=== PATIENT | female | born 1935 | race Caucasian/White ===

== ENCOUNTER 2016-09-17 09:45 | Outpatient (CLI) | payer MEDICARE, OTHER | END 2016-09-17 09:46 | disposition home or self-care (01) | DX: M06.9 Rheumatoid arthritis, unspecified (principal); R73.01 Impaired fasting glucose; E78.5 Hyperlipidemia, unspecified; I10 Essential (primary) hypertension; D64.9 Anemia, unspecified ==

== ENCOUNTER 2016-10-04 09:10 | Outpatient (CLI) | payer MEDICARE, OTHER | END 2016-10-04 09:11 | disposition home or self-care (01) | DX: R19.7 Diarrhea, unspecified (principal) ==

== ENCOUNTER 2017-05-07 10:32 | Outpatient (CLI) | payer MEDICARE, OTHER ==
--- NOTE | 2017-05-08 14:30 | Mammography Report ---
DIGITAL SCREENING MAMMOGRAM: 05/07/2017 CLINICAL INDICATION: An 82-year-old with family history of breast cancer, for screening. COMPARISON: 02/2016, 02/2015, 11/2013, 06/2012, 06/2011, 07/2010. TECHNIQUE: Routine CC and MLO projections were obtained of the breasts. FINDINGS: The breasts again demonstrate scattered fibroglandular densities bilaterally. Coarse and p unctate, typically benign calcifications are present. Intramammary lymph nodes are stable. No suspici ous masses, clustered microcalcifications, or regions of architectural distortion are identified. IMPRESSION: BENIGN FINDINGS. RECOMMENDATION: ROUTINE ANNUAL SCREENING UNLESS OTHERWISE CLINICALLY INDICATED. BIRADS CATEGORY 2-BENIGN FINDINGS. STANDARD QUALIFYING STATEMENTS 1. This examination was reviewed with the aid of Computer-Aided Detection (CAD). 2. A negative or benign imaging report should not delay biopsy if clinically suspicious findings are present. Consider surgical consultation if warranted. More than 5% of cancers are not identified by i maging. 3. Dense breasts may obscure an underlying neoplasm. JOB #: [id number] EXT JOB #:[id number]
== END 2017-05-07 10:33 | disposition home or self-care (01) ==
LOC: DI.S 10:32
PROVIDERS: ATTEND Physician Assistant Medical
DX: Z12.31 Encounter for screening mammogram for malignant neoplasm of breast (principal); Z80.3 Family history of malignant neoplasm of breast
CPT/HCPCS: 77067

== ENCOUNTER 2017-11-22 08:01 | Outpatient (CLI) | payer MEDICARE, OTHER ==
[2017-11-22 10:21] LABS: BASOPHILS % (AUTO) 0.7 %; EOSINOPHILS # (AUTO) 0.2 10^3/uL (0.0-0.7); EOSINOPHILS % (AUTO) 3.2 %; LYMPHOCYTES # (AUTO) 1.8 10^3/uL (1.5-3.5); LYMPHOCYTES % (AUTO) 27.4 %; MEAN CORPUSCULAR HEMOGLOBIN 31.3 pg (27.0-31.0); MEAN CORPUSCULAR HGB CONC 34.5 g/dL (32.0-36.0); MEAN CORPUSCULAR VOLUME 90.7 fL (81.0-99.0); MEAN PLATELET VOLUME 7.6 fL (7.9-10.8); MONOCYTES # (AUTO) 0.6 10^3/uL (0.0-1.0); MONOCYTES % (AUTO) 8.9 %; NEUTROPHILS # (AUTO) 3.8 10^3/uL (1.5-6.6); NEUTROPHILS % (AUTO) 59.8 %; PLT - PLATELET COUNT 277 10^3/uL (130-450); RED BLOOD COUNT 4.14 10^6/uL (4.20-5.40); RED CELL DISTRIBUTION WIDTH 13.5 % (12.0-15.0); WHITE BLOOD COUNT 6.4 x10^3/uL (4.8-10.8)
[2017-11-22 10:41] LABS: ALBUMIN 4.5 g/dL (3.2-5.5); ALBUMIN/GLOBULIN RATIO 1.8 (1.0-2.2); ALKALINE PHOSPHATASE 83 IU/L (42-121); ALT ALANINE AMINOTRANSFERASE 15 IU/L (10-60); AST ASPARTATE AMINOTRANSFERASE 19 IU/L (10-42); BILIRUBIN,TOTAL 0.7 mg/dL (0.2-1.0); BUN - BLOOD UREA NITROGEN 22 mg/dL (6-20); CALCIUM 9.1 mg/dL (8.5-10.3); CARBON DIOXIDE - CO2 27 mmol/L (21-32); CHLORIDE 100 mmol/L (101-111); CHOL/HDL RATIO 2.5 (<4.4); CHOLESTEROL 196 mg/dL; CREATININE 0.6 mg/dL (0.4-1.0); GFR - MDRD 95 (>89); GLUCOSE 94 mg/dL (70-100); HDL CHOLESTEROL 77 mg/dL; LDL CHOLESTEROL,CALCULATED 104 mg/dL; LDL/HDL RATIO 1.4 (<4.4); SODIUM 134 mmol/L (135-145); VLDL CHOLESTEROL 15 mg/dL
== END 2017-11-22 08:02 | disposition home or self-care (01) ==
LOC: LAB.F 08:01
PROVIDERS: ATTEND Physician Assistant Medical
DX: I10 Essential (primary) hypertension (principal); E78.5 Hyperlipidemia, unspecified
CPT/HCPCS: 36415; 80053; 80061; 83721; 85025

== ENCOUNTER 2018-02-20 08:00 | Outpatient (CLI) | payer MEDICARE, OTHER | END 2018-02-20 23:59 | LOC: LAB.R 08:00 | PROVIDERS: ATTEND Podiatrist | DX: L03.032 Cellulitis of left toe (principal) | CPT/HCPCS: 87070; 87205 ==

== ENCOUNTER 2018-11-07 09:12 | Outpatient (CLI) | payer MEDICARE, OTHER ==
--- NOTE | 2018-11-10 08:37 | Mammography Report ---
Reason: SCREENING MAMMO Procedure Date: 11/07/2018 Accession Number: [id number] / [id number] Procedure: JEFF - Screening Mammo w/Horacio CPT Code: FULL RESULT: EXAM: Screening Mammo w/Horacio DATE: 11/07/2018 10:10 AM CLINICAL HISTORY: Screening encounter. Family history of breast cancer in a sister at the age of 50. TECHNIQUE: Bilateral CC and MLO views were obtained. COMPARISON: 05/07/2017 through 11/11/2013. FINDINGS: The breasts demonstrate scattered fibroglandular densities bilaterally. There are coarse typically benign calcifications. Benign intramammary lymph nodes are redemonstrated. Obscured on 2-D imaging is a left breast 3 mm mildly hyperdense nodule in the retroareolar breast cone, 2 cm from the nipple on image 22 on the left CC imaging and likely on image 24 on the left MLO imaging. The finding is well circumscribed without associated architectural distortion or calcifications and possibly present but obscured on prior imaging though this cannot be established due to absence of previous 3-D technique. Additional spot views and ultrasound are required for characterization. No suspicious masses, clustered microcalcifications, or regions of architectural distortion are identified in the right breast. IMPRESSION: Incomplete examination RECOMMENDATION: Additional evaluation of the left breast with spot view imaging and ultrasound as above. BIRADS CATEGORY 0: Incomplete examination STANDARD QUALIFYING STATEMENTS: 1. This examination was not reviewed with the aid of Computer-Aided Detection (CAD). 2. A negative or benign imaging report should not delay biopsy if clinically suspicious findings are present. Consider surgical consultation if warrented. More than 5% of cancers are not identified by imaging. 3. Dense breasts may obscure an underlying neoplasm. 4. This examination was reviewed with the aid of 3D breast imaging (tomosynthesis).
== END 2018-11-07 09:13 | disposition home or self-care (01) ==
LOC: DI 09:12
DX: Z12.31 Encounter for screening mammogram for malignant neoplasm of breast (principal); Z80.3 Family history of malignant neoplasm of breast
CPT/HCPCS: 77063; 77067

== ENCOUNTER 2018-11-07 09:14 | Outpatient (CLI) | payer MEDICARE, OTHER ==
--- NOTE | 2018-11-07 10:16 | DEXA Report ---
Reason: ASYMPTOMATIC MENOPAUSAL STATE Procedure Date: 11/07/2018 Accession Number: [id number] / [id number] Procedure: DEX - Dexa Spine and/or Hip CPT Code: FULL RESULT: EXAM: Dexa Spine and/or Hip, Dexa Forearm DATE: 11/07/2018 9:54 AM CLINICAL HISTORY: ASYMPTOMATIC MENOPAUSAL STATE TECHNIQUE: Dual energy x-ray absorptiometry (DXA) was performed on a [employer] System. Regions measured are the AP Spine, femoral neck, and if needed forearm. COMPARISON: None. In accordance with the International Society for Clinical Densitometry (ISCD) guidelines, data from previous exams may be reanalyzed using current recommendations and techniques. This is done to allow a more accurate basis for comparison with the current study. FINDINGS: The data for the lumbar spine is as follows: BMD (g/cm/cm) T-SCORE Z-SCORE REGION L1 0.986 -1.2 1.1 L2 1.114 -0.7 1.5 L3 1.319 1.0 3.2 L4 1.297 0.8 3.1 TOTAL 1.203 0.2 2.4 NOTE: All evaluable vertebrae are used for classification The data for the left forearm is as follows: BMD (g/cm/cm) T-SCORE Z-SCORE REGION 1/3 0.566 -3.5 -0.4 NOTE: The 33% radius of the nondominant forearm is used for classification. IMPRESSION: THE WHO CLASSIFICATION BASED ON THE INTERNATIONAL REFERENCE STANDARD IS OSTEOPOROSIS. THE FRACTURE RISK IS HIGH. RECOMMENDATION: Patients with diagnosis of osteoporosis or osteopenia should have regular bone mineral density assessment. For those eligible for Medicare, routine testing is allowed once every 2 years. Testing frequency can be increased for patients who have rapidly progressing disease or for those who are receiving medical therapy to restore bone mass. COMMENT: World Health Organization (WHO) definitions for osteoporosis and osteopenia: NORMAL BMD: T-score at -1.0 or higher, fracture risk is low OSTEOPENIA BMD: T-score between -1.0 and -2.5, fracture risk is increased. OSTEOPOROSIS BMD: T-score at -2.5 or lower, fracture risk is high. National Osteoporosis Foundation recommends: 1. Obtain adequate dietary calcium (at least 1200 mg per day) and vitamin D (400-800 international units per day). 2. Participate, as appropriate, in regular weightbearing and muscle-strengthening exercise. 3. Avoid tobacco use and reduce alcohol and caffeine intake. 4. For more detailed information see the website at www.NOF.org.
--- NOTE | 2018-11-07 10:16 | DEXA Report ---
Reason: ASYMPTOMATIC MENOPAUSAL STATE Procedure Date: 11/07/2018 Accession Number: [id number] / [id number] Procedure: DEX - Dexa Forearm CPT Code: FULL RESULT: EXAM: Dexa Spine and/or Hip, Dexa Forearm DATE: 11/07/2018 9:54 AM CLINICAL HISTORY: ASYMPTOMATIC MENOPAUSAL STATE TECHNIQUE: Dual energy x-ray absorptiometry (DXA) was performed on a [employer] System. Regions measured are the AP Spine, femoral neck, and if needed forearm. COMPARISON: None. In accordance with the International Society for Clinical Densitometry (ISCD) guidelines, data from previous exams may be reanalyzed using current recommendations and techniques. This is done to allow a more accurate basis for comparison with the current study. FINDINGS: The data for the lumbar spine is as follows: BMD (g/cm/cm) T-SCORE Z-SCORE REGION L1 0.986 -1.2 1.1 L2 1.114 -0.7 1.5 L3 1.319 1.0 3.2 L4 1.297 0.8 3.1 TOTAL 1.203 0.2 2.4 NOTE: All evaluable vertebrae are used for classification The data for the left forearm is as follows: BMD (g/cm/cm) T-SCORE Z-SCORE REGION 1/3 0.566 -3.5 -0.4 NOTE: The 33% radius of the nondominant forearm is used for classification. IMPRESSION: THE WHO CLASSIFICATION BASED ON THE INTERNATIONAL REFERENCE STANDARD IS OSTEOPOROSIS. THE FRACTURE RISK IS HIGH. RECOMMENDATION: Patients with diagnosis of osteoporosis or osteopenia should have regular bone mineral density assessment. For those eligible for Medicare, routine testing is allowed once every 2 years. Testing frequency can be increased for patients who have rapidly progressing disease or for those who are receiving medical therapy to restore bone mass. COMMENT: World Health Organization (WHO) definitions for osteoporosis and osteopenia: NORMAL BMD: T-score at -1.0 or higher, fracture risk is low OSTEOPENIA BMD: T-score between -1.0 and -2.5, fracture risk is increased. OSTEOPOROSIS BMD: T-score at -2.5 or lower, fracture risk is high. National Osteoporosis Foundation recommends: 1. Obtain adequate dietary calcium (at least 1200 mg per day) and vitamin D (400-800 international units per day). 2. Participate, as appropriate, in regular weightbearing and muscle-strengthening exercise. 3. Avoid tobacco use and reduce alcohol and caffeine intake. 4. For more detailed information see the website at www.NOF.org.
== END 2018-11-07 09:15 | disposition home or self-care (01) ==
LOC: DI 09:14
PROVIDERS: ATTEND Physician Assistant Medical
DX: M81.0 Age-related osteoporosis without current pathological fracture (principal); Z78.0 Asymptomatic menopausal state
CPT/HCPCS: 77080; 77081

== ENCOUNTER 2018-11-24 10:43 | Outpatient (CLI) | payer MEDICARE, OTHER ==
--- NOTE | 2018-11-24 11:25 | Mammography Report ---
Reason: ABN MAMMO - LT SPEC VIEWS Procedure Date: 11/24/2018 Accession Number: [id number] / [id number] Procedure: JEFF - Diag Special Views Dig LT CPT Code: FULL RESULT: EXAM: Diag Special Views Dig LT DATE: 11/24/2018 11:17 AM CLINICAL HISTORY: Recall from screening exam 11/07/2018 4 small oval mass subareolar left breast. TECHNIQUE: Left spot magnification CC MLO: Full field 90 degree lateral view. COMPARISON: 11/07/2018 through 12/01/2013 FINDINGS: The breast demonstrates scattered fibroglandular densities. Left breast: 3 mm oval mass in the subareolar breast recalled from recent screening exam is again reproduced. It is seen on the exam of 03/01/2016 and is unchanged. There are no suspicious masses, calcifications or areas of distortion. IMPRESSION: Left breast: 3 mm oval mass a circumscribed margins subareolar breast recalled from screening exam is unchanged since at least 2015. Benign. BI-RADS Category 2. Recommend annual screening mammography. BI-RADS CATEGORY 2: Benign findings STANDARD QUALIFYING STATEMENTS: 1. This examination was not reviewed with the aid of Computer-Aided Detection (CAD). 2. A negative or benign imaging report should not preclude biopsy if clinically suspicious findings are present. 3. Dense breasts may obscure an underlying neoplasm. 4. This examination was reviewed without the aid of 3D breast imaging (tomosynthesis).
== END 2018-11-24 10:44 | disposition home or self-care (01) ==
LOC: DI 10:43
PROVIDERS: ATTEND Physician Assistant Medical
DX: N63.42 Unspecified lump in left breast, subareolar (principal)

== ENCOUNTER 2019-01-22 08:22 | Outpatient (CLI) | payer MEDICARE, OTHER ==
[2019-01-22 12:13] LABS: BASOPHILS # (AUTO) 0.1 10^3/uL (0.0-0.1); EOSINOPHILS # (AUTO) 0.3 10^3/uL (0.0-0.7); EOSINOPHILS % (AUTO) 4.3 %; HGB - HEMOGLOBIN 12.5 g/dL (12.0-16.0); LYMPHOCYTES # (AUTO) 1.7 10^3/uL (1.5-3.5); LYMPHOCYTES % (AUTO) 28.7 %; MEAN CORPUSCULAR HEMOGLOBIN 30.9 pg (27.0-31.0); MEAN CORPUSCULAR HGB CONC 33.5 g/dL (32.0-36.0); MEAN CORPUSCULAR VOLUME 92.2 fL (81.0-99.0); MEAN PLATELET VOLUME 7.9 fL (7.9-10.8); MONOCYTES # (AUTO) 0.5 10^3/uL (0.0-1.0); MONOCYTES % (AUTO) 8.9 %; NEUTROPHILS # (AUTO) 3.4 10^3/uL (1.5-6.6); NEUTROPHILS % (AUTO) 57.1 %; PLT - PLATELET COUNT 253 10^3/uL (130-450); RED BLOOD COUNT 4.06 10^6/uL (4.20-5.40); RED CELL DISTRIBUTION WIDTH 14.4 % (12.0-15.0); WHITE BLOOD COUNT 5.9 x10^3/uL (4.8-10.8)
[2019-01-22 12:33] LABS: ALBUMIN/GLOBULIN RATIO 1.5 (1.0-2.2); ALKALINE PHOSPHATASE 64 IU/L (42-121); ALT ALANINE AMINOTRANSFERASE 14 IU/L (10-60); AST ASPARTATE AMINOTRANSFERASE 19 IU/L (10-42); BILIRUBIN,TOTAL 0.9 mg/dL (0.2-1.0); BUN - BLOOD UREA NITROGEN 29 mg/dL (6-20); CALCIUM 9.1 mg/dL (8.5-10.3); CARBON DIOXIDE - CO2 28 mmol/L (21-32); CHLORIDE 103 mmol/L (101-111); CHOL/HDL RATIO 2.9 (<4.4); CHOLESTEROL 186 mg/dL; CREATININE 0.7 mg/dL (0.4-1.0); GFR - MDRD 80 (>89); GLUCOSE 93 mg/dL (70-100); HDL CHOLESTEROL 65 mg/dL; LDL CHOLESTEROL,CALCULATED 105 mg/dL; LDL/HDL RATIO 1.6 (<4.4); SODIUM 139 mmol/L (135-145); TOTAL PROTEIN 6.7 g/dL (6.7-8.2); VLDL CHOLESTEROL 16 mg/dL
[2019-01-22 12:55] LABS: HB2 TOTAL 13.5 g/dL; HEMOGLOBIN A1C 0.55 g/dL; HEMOGLOBIN A1C % 5.9 % (4.6-6.2)
== END 2019-01-22 08:23 | disposition home or self-care (01) ==
LOC: LAB.F 08:22
PROVIDERS: ATTEND Physician Assistant Medical
DX: I10 Essential (primary) hypertension (principal); E78.5 Hyperlipidemia, unspecified; R73.01 Impaired fasting glucose
CPT/HCPCS: 36415; 80053; 80061; 83036; 83721; 85025

== ENCOUNTER 2019-09-18 11:16 | Outpatient (CLI) | payer MEDICARE, OTHER ==
[2019-09-18 12:37] LABS: HB2 TOTAL 13.4 g/dL; HEMOGLOBIN A1C 0.56 g/dL
== END 2019-09-18 11:17 | disposition home or self-care (01) ==
LOC: LAB 11:16
PROVIDERS: ATTEND Physician Assistant Medical
DX: R73.01 Impaired fasting glucose (principal)
CPT/HCPCS: 36415; 83036

== ENCOUNTER 2020-04-06 18:22 | Outpatient (CLI) | payer MEDICARE, OTHER ==
--- NOTE | 2020-04-07 11:16 | Ultrasound Report ---
PROCEDURE: Abdomen Complete INDICATIONS: LT UPPER QUAD PAIN TECHNIQUE: Real-time scanning was performed of the abdominal and retroperitoneal organs, with image documentatio n. COMPARISON: None. FINDINGS: Liver: Numerous small echogenic foci are demonstrated throughout the liver compatible with microcalci fications likely related to old granulomatous disease. Gallbladder: No gallstones, gallbladder wall thickening, or pericholecystic fluid. Biliary ducts: Intrahepatic bile ducts are non-dilated. Extrahepatic bile duct caliber measures 5 m m. Normal is 6-7 mm or less in diameter, or 10 mm or less post-cholecystectomy. Pancreas: Visualized portions of the pancreas are sonographically normal. Spleen: Spleen is normal in size. Kidneys: Right kidney measures 9.1 cm long; left kidney measures 9.8 cm long. There is a nonshadowin g small echogenic focus in the right kidney measuring up to 0.7 cm. Left kidney demonstrates mild hyd ronephrosis. No right hydronephrosis. Aorta: There is fusiform aneurysmal dilatation of the abdominal aorta, with the mid aorta measuring u p to 3.9 cm and the distal aorta measuring up to 3.4 cm in anteroposterior dimension. There is diffus e atherosclerotic plaque. Iliacs: Proximal common iliac arteries are normal in caliber at less than 2.5 cm. IVC: Intrahepatic inferior vena cava is patent. Miscellaneous: No free abdominal fluid. IMPRESSION: 1. Mild left hydronephrosis. Further evaluation for possible obstructing stone or distal mass lesion may be obtained with CT. 2. Small microcalcifications in the liver likely related to old granulomatous disease. 3. Aneurysmal dilatation of the abdominal aorta. Reviewed by: Javier Suárez MD on 04/07/2020 11:15 AM PDT Approved by: Javier Suárez MD on 04/07/2020 11:15 AM PDT Station ID: [id number]
== END 2020-04-06 18:23 | disposition home or self-care (01) ==
LOC: DI 18:22
PROVIDERS: ATTEND Nurse Practitioner Family
DX: N13.30 Unspecified hydronephrosis (principal); R93.2 Abnormal findings on diagnostic imaging of liver and biliary tract; I77.811 Abdominal aortic ectasia
CPT/HCPCS: 76700

== ENCOUNTER 2020-11-04 08:55 | Outpatient (CLI) | payer MEDICARE, OTHER ==
--- NOTE | 2020-11-04 13:23 | Ultrasound Report ---
PROCEDURE: Retroperitoneal Limited INDICATIONS: AAA WITHOUT RUPTURE TECHNIQUE: Real time scanning was performed of the aorta and iliac arteries, with image documentatio n. COMPARISON: 04/06/2020 FINDINGS: Aorta: Proximal aortic diameter measures 3.8 x 4.4 cm. Mid-aorta measures 4.4 x 4.8 cm. Distal aor tic diameter is 4.1 x 4.0 cm. The course of the aorta is tortuous. The wall margin is slightly indis tinct. The wall contains calcific plaque and is irregular. The distal aortic wall demonstrates eccent davey thrombus anterior and right lateral. Iliac arteries: Right common iliac artery measures 1.2 x 1.4 cm. Left common iliac artery measures 1.2 x 1.2 cm. Irregular course and moderate bilateral calcific plaque. IMPRESSION: 1. Since the prior ultrasound, the distal aorta now demonstrates increased diameter and new mural thr ombus. 2. Further evaluation with CTA of the abdominal aorta is recommended. Reviewed by: Nitza Mcginnis MD on 11/04/2020 1:21 PM PST Approved by: Nitza Mcginnis MD on 11/04/2020 1:21 PM PST Station ID: [id number]
== END 2020-11-04 08:56 | disposition home or self-care (01) ==
LOC: DI 08:55
PROVIDERS: ATTEND Nurse Practitioner Family
DX: I71.4 Abdominal aortic aneurysm, without rupture (principal); I74.09 Other arterial embolism and thrombosis of abdominal aorta

== ENCOUNTER 2020-11-14 11:26 | Outpatient (CLI) | payer MEDICARE, OTHER ==
[2020-11-14] MEDS ORDERED: IOVERSOL 320 100 ML VIAL IVP ONE (12:28)
--- NOTE | 2020-11-14 13:31 | CT Report ---
PROCEDURE: ANGIO ABDOMEN/PELVIS W INDICATIONS: AAA CONTRAST: IV CONTRAST: Optiray 320 ml: 100 PO CONTRAST: *NO PO CONTRAST TECHNIQUE: After the administration of intravenous contrast, 2 and 5 mm sections acquired from the diaphragm to the iliac crests. 3-dimensional maximum intensity projection (MIP) coronal and sagittal reformats, a nd/or 3-dimensional volume rendering reformatting was then performed. For radiation dose reduction, the following was used: automated exposure control, adjustment of mA and/or kV according to patient size. COMPARISON: None FINDINGS: Image quality: Excellent. Extravascular tissues: Lung bases are clear. Heart size is normal. Liver and spleen are normal in size and enhancement. Gallbladder is within normal limits Biliary system is non dilated. Pancreas enhances normally. No adrenal nodules. Bilateral parapelvic renal cysts are present. Kidneys are ot herwise normal in size and enhancement, without hydronephrosis. A small hiatal hernia is present. 35 mm diameter duodenal diverticulum is present. Non-opacified bowel loops demonstrate normal wall thic kness and caliber. No free fluid or air. No retroperitoneal or mesenteric adenopathy. No ventral h ernias. No suspicious bony abnormalities. No vertebral body compression fractures. Bilateral hip a rthroplasty has been performed. Multilevel degenerative disc disease within the lumbar spine. Multile gris facet osteoarthritis throughout the lumbar spine. Aorta: There is aneurysmal dilatation of the mid/distal descending thoracic aorta, measuring roughly 44 mm diameter. There is aneurysmal dilatation of the perirenal abdominal aorta, measuring roughly 4 5 mm diameter. No dissection. No significant aortic stenosis. 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 Superior mesenteric artery is patent. Inferior mesenteric artery is patent. There are 2 left renal arteries, the superior which is dominant, and is patent, the inferior which is accessory and is not well seen at its origin . There are 2 right renal arteries, which appear grossly patent. IMPRESSION: 1. 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 2. High-grade celiac artery origin stenosis. 3. No significant renal artery stenosis. 4. Small hiatal hernia. Reviewed by: Rut Ashton MD on 11/14/2020 1:30 PM PST Approved by: Rut Ashton MD on 11/14/2020 1:30 PM PST Station ID: [id number]
== END 2020-11-14 11:27 | disposition home or self-care (01) ==
LOC: DI 11:26
PROVIDERS: ATTEND Nurse Practitioner Family
DX: I71.4 Abdominal aortic aneurysm, without rupture (principal); I71.2 Thoracic aortic aneurysm, without rupture; I77.4 Celiac artery compression syndrome; K44.9 Diaphragmatic hernia without obstruction or gangrene
CPT/HCPCS: 36415; 74174; 80048; Q9967

== ENCOUNTER 2020-11-14 11:33 | Outpatient (CLI) | payer MEDICARE, OTHER ==
[2020-11-14 11:57] LABS: CALCIUM 9.7 mg/dL (8.5-10.3); CREATININE 0.7 mg/dL (0.4-1.0); POTASSIUM 4.3 mmol/L (3.5-5.0)
== END 2020-11-14 11:34 | disposition home or self-care (01) ==
LOC: LAB 11:33
PROVIDERS: ATTEND Nurse Practitioner Family
DX: I71.4 Abdominal aortic aneurysm, without rupture (principal)
CPT/HCPCS: 36415; 80048

== ENCOUNTER 2022-01-12 09:24 | Outpatient (CLI) | payer MEDICARE, OTHER ==
--- NOTE | 2022-01-12 16:37 | XRAY Report ---
PROCEDURE: Lumbar Spine 2 View INDICATIONS: LOW BACK PAIN TECHNIQUE: 3 views of the lumbar spine were acquired. COMPARISON: None. FINDINGS: Bones: 5 [id number] vertebrae are present. There is 8 mm of L4-L5 anterolisthesis. There is 10 mm of L5-S1 anterolisthesis. Convex right curvature of the lumbar spine. No vertebral body compressi on fractures. No suspicious bony lesions. Severe L2-L3, L3-L4 and L4-L5 degenerative disc disease. Moderate L1-L2 and L5-S1 degenerative disease. Severe echo 3-L4, L4-L5 and L5-S1 facet hypertrophy. M oderate L1-L2 and L2-L3 facet arthropathy. Partially visualized bilateral hip arthroplasties. Soft tissues: Overlying bowel gas pattern is normal. No suspicious soft tissue calcifications. IMPRESSION: 1. Multilevel degenerative disc disease. 2. Multilevel facet arthropathy. 3. No fracture. No acute osseous lesion. If there is continued clinical concern for pathology, then M RI should be considered for further evaluation. 4. Grade 1 L4-L5 and L5-S1 degenerative anterolisthesis Reviewed by: Melvi Dupont MD, PhD on 01/12/2022 4:36 PM PDT Approved by: Melvi Dupont MD, PhD on 01/12/2022 4:36 PM PDT Station ID: [id number]
--- NOTE | 2022-01-12 16:38 | XRAY Report ---
PROCEDURE: Hip w/Pelvis 2-3V RT INDICATIONS: Right hip pain. TECHNIQUE: AP pelvis with lateral view(s) of the right hip(s). COMPARISON: None. FINDINGS: Bones: No fractures or dislocations. Pelvic ring appears intact. No suspicious bony lesions. Bilat eral hip arthroplasties noted. Orthopedic hardware is in expected position. Soft tissues: The visualized bowel gas pattern is normal. Heterotopic bone noted adjacent to the med ial margin of the neck of the femoral component of the right hip arthroplasty. IMPRESSION: Expected postsurgical change for bilateral hip arthroplasty. Reviewed by: Melvi Dupont MD, PhD on 01/12/2022 4:37 PM PDT Approved by: Melvi Dupont MD, PhD on 01/12/2022 4:37 PM PDT Station ID: [id number]
== END 2022-01-12 09:25 | disposition home or self-care (01) ==
LOC: DI.S 09:24
PROVIDERS: ATTEND Nurse Practitioner Family
DX: M51.36 Other intervertebral disc degeneration, lumbar region (principal); M47.816 Spondylosis without myelopathy or radiculopathy, lumbar region; M47.817 Spondylosis without myelopathy or radiculopathy, lumbosacral region; M51.37 Other intervertebral disc degeneration, lumbosacral region; M43.16 Spondylolisthesis, lumbar region; M43.17 Spondylolisthesis, lumbosacral region; Z96.641 Presence of right artificial hip joint

== ENCOUNTER 2023-03-25 08:00 | Outpatient (CLI) | payer MEDICARE, OTHER ==
--- NOTE | 2023-03-25 14:49 | XRAY Report ---
PROCEDURE: Knee 4 View RT INDICATIONS: RIGHT KNEE PAIN TECHNIQUE: 4 views of the bilateral and right knee(s) were acquired. COMPARISON: Right knee x-ray 07/17/2017 FINDINGS: Bones: Severe tricompartmental degenerative changes of the right knee. There is severe joint space n arrowing involving all 3 compartments. There are subchondral cystic changes and sclerosis. Osteophyto sis present. There is medial subluxation of the femur with respect to the tibia. The patella is high riding. This is progressed compared to 07/17/2017 x-ray. Mild degenerative changes of the left knee. Soft tissues: Small knee joint effusion. No suspicious soft tissue calcifications or masses. Athero sclerotic vascular calcifications. IMPRESSION: Severe tricompartmental degenerative changes of the right knee with medial subluxation of the femur w ith respect to the tibia. This is progressed compared to right knee x-ray 07/17/2017. Reviewed by: Severiano Wells MD on 03/25/2023 2:47 PM PDT Approved by: Severiano Wells MD on 03/25/2023 2:47 PM PDT Station ID: [id number]
== END 2023-03-25 23:59 | disposition home or self-care (01) ==
LOC: DI.WOS 08:00
PROVIDERS: ATTEND Physician Assistant Surgical
DX: M17.11 Unilateral primary osteoarthritis, right knee (principal); S83.19 Other subluxation and dislocation of knee

== ENCOUNTER 2023-06-12 11:29 | Outpatient (CLI) | payer MEDICARE, OTHER | END 2023-06-12 11:30 | disposition home or self-care (01) | LOC: LAB 11:29 | PROVIDERS: ATTEND Registered Nurse | DX: Z53.9 Procedure and treatment not carried out, unspecified reason (principal) | CPT/HCPCS: 36415; 80048; 84443 ==

== ENCOUNTER 2023-06-13 12:50 | Outpatient (CLI) | payer MEDICARE, OTHER ==
[2023-06-13 13:05] LABS: BASOPHILS # (AUTO) 0.1 10^3/uL (0.0-0.1); BASOPHILS % (AUTO) 0.8 %; EOSINOPHILS # (AUTO) 0.1 10^3/uL (0.0-0.7); EOSINOPHILS % (AUTO) 2.1 %; HCT - HEMATOCRIT 31.2 % (37.0-47.0); HGB - HEMOGLOBIN 10.1 g/dL (12.0-16.0); LYMPHOCYTES # (AUTO) 0.9 10^3/uL (1.5-3.5); LYMPHOCYTES % (AUTO) 13.4 %; MEAN CORPUSCULAR HEMOGLOBIN 29.9 pg (27.0-31.0); MEAN CORPUSCULAR HGB CONC 32.4 g/dL (32.0-36.0); MEAN CORPUSCULAR VOLUME 92.3 fL (81.0-99.0); MEAN PLATELET VOLUME 9.5 fL (7.9-10.8); MONOCYTES # (AUTO) 0.6 10^3/uL (0.0-1.0); MONOCYTES % (AUTO) 8.8 %; NEUTROPHILS # (AUTO) 4.9 10^3/uL (1.5-6.6); NEUTROPHILS % (AUTO) 74.6 %; PLT - PLATELET COUNT 337 10^3/uL (130-450); RED BLOOD COUNT 3.38 10^6/uL (4.20-5.40); RED CELL DISTRIBUTION WIDTH 14.5 % (12.0-15.0); WHITE BLOOD COUNT 6.6 x10^3/uL (4.8-10.8)
[2023-06-13 13:30] LABS: CREATININE 0.6 mg/dL (0.6-1.3); POTASSIUM 4.3 mmol/L (3.5-4.5)
[2023-06-13 13:33] LABS: THYROID STIMULATING HORMONE 4.12 uIU/mL (0.34-5.60)
== END 2023-06-13 12:51 | disposition home or self-care (01) ==
LOC: LAB.R 12:50
PROVIDERS: ATTEND Registered Nurse
DX: I10 Essential (primary) hypertension (principal); E03.9 Hypothyroidism, unspecified; D64.9 Anemia, unspecified
CPT/HCPCS: 80048; 84443; 85025

== ENCOUNTER 2023-06-18 08:00 | Outpatient (CLI) | payer MEDICARE, OTHER ==
--- NOTE | 2023-06-19 11:21 | XRAY Report ---
PROCEDURE: Knee 4 View RT INDICATIONS: RIGHT KNEE PAIN TECHNIQUE: 06/05/2023 views of the right knee(s) were acquired. COMPARISON: 06/05/2023 FINDINGS: Bones: Lateral positioning of the tibia in relation to the femur, again seen. Severe degenerative zane nges, with joint space loss and deformity of the medial tibia. Ill-defined lucency again seen in the medial femoral condyle, likely an insufficiency fracture and superimposed degenerative changes. Defor mity of the medial tibial plateau again seen. Soft tissues: Diffuse soft tissue swelling. Subluxed patella in relation to the femoral trochlea. Pat ellar enthesopathy. Lipohemarthrosis. Multiple osseous loose bodies. IMPRESSION: Suspected medial femoral condyle insufficiency fracture and superimposed advanced degenerative change s. Deformity of the medial tibial plateau, likely from prior fracture. Lipohemarthrosis raises concer n for a superimposed acute component. Advanced degenerative changes. Reviewed by: Tima Carvalho MD on 06/19/2023 11:20 AM PDT Approved by: Tima Carvalho MD on 06/19/2023 11:20 AM PDT Station ID: [id number]
== END 2023-06-18 23:59 | disposition home or self-care (01) ==
LOC: DI.WOS 08:00
PROVIDERS: ATTEND Physician Assistant Surgical
DX: M17.11 Unilateral primary osteoarthritis, right knee (principal)

== ENCOUNTER 2023-06-20 08:00 | Outpatient (CLI) | payer MEDICARE, OTHER ==
--- NOTE | 2023-06-20 16:57 | XRAY Report ---
PROCEDURE: Hip 2 View RT INDICATIONS: RIGHT HIP FRACTURE TECHNIQUE: 2 view(s) of the hip were acquired. COMPARISON: 06/04/2023 FINDINGS: Bones: Right periprosthetic fracture again noted with remodeling of the persistent fracture line righ t hip arthroplasty remains unchanged. Generalized decreased osseous mineralization. Left hip arthropl asty is also similar to the prior exam. Degenerative changes noted in the lower lumbar spine. Surgica l clips present in the right lower quadrant. Soft tissues: No suspicious soft tissue calcifications or masses. IMPRESSION: Interval remodeling of right proximal femoral periprosthetic fracture with persistent fracture line Reviewed by: Taz Holguin MD on 06/20/2023 3:55 PM AKDONTE Approved by: Taz Holguin MD on 06/20/2023 3:55 PM AKDONTE Station ID: [id number]
== END 2023-06-20 23:59 | disposition home or self-care (01) ==
LOC: DI.WOS 08:00
PROVIDERS: ATTEND Orthopaedic Surgery
DX: M97.01XA Periprosthetic fracture around internal prosthetic right hip joint, initial encounter (principal)

== ENCOUNTER 2023-07-03 08:50 | Outpatient (CLI) | payer MEDICARE, OTHER | END 2023-07-03 08:51 | disposition home or self-care (01) | LOC: DI 08:50 | PROVIDERS: ATTEND Nurse Practitioner Family | DX: R01.1 Cardiac murmur, unspecified (principal) | CPT/HCPCS: 93306 ==

== ENCOUNTER 2023-07-16 08:00 | Outpatient (CLI) | payer MEDICARE, OTHER ==
--- NOTE | 2023-07-16 15:02 | XRAY Report ---
PROCEDURE: Knee 4 View RT INDICATIONS: RIGHT KNEE INJURY TECHNIQUE: 4 views of the knee(s) were acquired. COMPARISON: X-ray right knee 06/18/2023 FINDINGS: Bones: Redemonstration of medial subluxation of the femur with respect to the tibia. Severe degenera tive changes with joint space narrowing and deformity of the medial tibia. Ill-defined lucency within the medial femoral condyle is not as well appreciated. Deformity of the medial tibial plateau is aga in seen. Soft tissues: Moderate knee joint effusion. No suspicious soft tissue calcifications or masses. Athe rosclerotic vascular calcifications. IMPRESSION: 1.Redemonstration of advanced degenerative changes of the right knee. 2.Ill-defined lucency within the medial femoral condyle is not as well appreciated on current exam. Reviewed by: Severiano Wells MD on 07/16/2023 3:01 PM PST Approved by: Severiano Wells MD on 07/16/2023 3:01 PM PST Station ID: [id number]
== END 2023-07-16 23:59 | disposition home or self-care (01) ==
LOC: DI.WOS 08:00
PROVIDERS: ATTEND Physician Assistant Surgical
DX: S82.134D Nondisplaced fracture of medial condyle of right tibia, subsequent encounter for closed fracture with routine healing (principal); M17.11 Unilateral primary osteoarthritis, right knee

== ENCOUNTER 2023-07-23 08:00 | Outpatient (CLI) | payer MEDICARE, OTHER ==
--- NOTE | 2023-07-23 16:57 | XRAY Report ---
PROCEDURE: Hip 2 View RT INDICATIONS: RIGHT HIP FRACTURE TECHNIQUE: AP and frog-leg lateral views of the hip were acquired. COMPARISON: 06/04/2023, 06/20/2023 FINDINGS: Bones: Total right hip arthroplasty in place with no evidence of hardware failure or loosening. Mild interval progress in healing of a periprosthetic fracture involving the subtrochanteric region of the right hip. No new fractures or dislocations. Soft tissues: No suspicious soft tissue calcifications or masses. IMPRESSION: Slight interval progress in healing of a periprostatic fracture of the right hip. Reviewed by: Kye Schwab MD on 07/23/2023 4:56 PM PST Approved by: Kye Schwab MD on 07/23/2023 4:56 PM PST Station ID: [id number]
== END 2023-07-23 23:59 | disposition home or self-care (01) ==
LOC: DI.WOS 08:00
PROVIDERS: ATTEND Orthopaedic Surgery
DX: M96.661 Fracture of femur following insertion of orthopedic implant, joint prosthesis, or bone plate, right leg (principal)